=== PATIENT | female | born 1970 | race Caucasian/White ===

== ENCOUNTER 2017-06-14 12:53 | Emergency (ER) | payer OTHER ==
[2017-06-14 13:05] VITALS: O2SAT 98
[2017-06-14 13:50] LABS: RBC URINE 3 /hpf (0-3); URINE BILIRUBIN NEGATIVE (NEGATIVE); URINE COLOR Yellow (YELLOW); URINE GLUCOSE (UA) NORMAL (Normal); URINE KETONE NEGATIVE (NEGATIVE); URINE LEUKOCYTE ESTERASE NEG Leu/uL (Negative); URINE PROTEIN NEGATIVE (NEGATIVE); URINE UROBILINOGEN NORMAL mg/dL (0.2-1.0); WBC URINE 2 /hpf (0-5)
[2017-06-14 13:56] LABS: URINE BLOOD 1+ (NEGATIVE)
[2017-06-14 14:25] LABS: BASO # 0.1 K/uL (0.0-0.2); BASO % 0.7 % (0.0-2.0); EOS # 0.1 K/uL (0.0-0.7); EOS % 1.1 % (0.0-4.0); HEMATOCRIT 39.8 % (34.0-47.0); LYMPH % 26.3 % (20.0-40.0); MEAN CELL VOLUME 84.7 fL (81.0-99.0); MEAN CORPUSCULAR HEMOGLOBIN 27.7 pg (27.0-31.0); MEAN CORPUSCULAR HGB CONC 32.7 g/dL (33.0-37.0); MEAN PLATELET VOLUME 8.9 fL (7.2-11.7); MONO # 0.7 K/uL (0.0-0.8); MONO % 9.8 % (0.0-10.0); NRBC % 0.1 % (0.0-2.0); RED CELL DISTRIBUTION WIDTH 13.3 % (11.5-14.5); WHITE BLOOD COUNT 7.6 K/uL (4.8-10.8)
--- NOTE | 2017-06-14 15:15 | C.PDOC ---
History Of Present Illness 47 yo female come in for evaluation of lower abdominal cramping pain gradually developed for past few days. Pt sts, had spontaneous on 05/27/17 and since then has vaginal bleeding " but did not have stomach pain". Pt sts, at present time vaginal bleeding appears as spotting. Pt admits, was seen by DIRECTOR OF DEMENTIA OPERATIONS for follow up and scheduled for US. Pt reports, had transvaginal US CORRUGATOR " and was told go to ED for further evaluation". Otherwise, pt denies fever, chills, headache, dizziness, weakness, neck apin, CP, SOB, dyspnea, diaphoresis, V/D, back pain, UTI sx, hematuria. Ambulate to ED for evaluation, not in any apparent distress. Time Seen by Provider: 06/14/17 13:23 Chief Complaint (Nursing): Abdominal Pain History Per: Patient Past Medical History Reviewed: Historical Data, Nursing Documentation, Vital Signs Vital Signs: Last Vital Signs Temp 98.3 F 06/14/17 16:45 Pulse 75 06/14/17 16:45 Resp 20 06/14/17 16:45 BP 116/81 06/14/17 16:45 Pulse Ox 98 06/14/17 16:45 - Medical History PMH: No Chronic Diseases Surgical History: No Surg Hx Family History: States: No Known Family Hx - Social History Hx Alcohol Use: No Hx Substance Use: No Review Of Systems Except As Marked, All Systems Reviewed And Found Negative. Constitutional: Negative for: Fever, Chills Eyes: Negative for: Vision Change ENT: Negative for: Throat Pain, Throat Swelling Cardiovascular: Negative for: Chest Pain, Palpitations Respiratory: Negative for: Cough, Shortness of Breath Gastrointestinal: Positive for: Abdominal Pain. Negative for: Nausea, Vomiting , Diarrhea Genitourinary: Negative for: Hematuria, Vaginal Discharge, Vaginal Bleeding Musculoskeletal: Negative for: Neck Pain, Back Pain Skin: Negative for: Rash Neurological: Negative for: Altered Mental Status, Headache, Dizziness Physical Exam - Physical Exam Appears: Well, Non-toxic, No Acute Distress Skin: Normal Color, Warm, Dry, No Rash Head: Normacephalic Eye(s): bilateral: PERRL Nose: No Flaring, No Discharge Oral Mucosa: Moist, No Drooling Throat: No Erythema, No Exudate, No Drooling Neck: Supple Cardiovascular: Rhythm Regular Respiratory: No Decreased Breath Sounds, No Accessory Muscle Use, No Stridor, No Wheezing Gastrointestinal/Abdominal: Soft, Tenderness (mild suprapubic), No Distention, No Guarding Back: No CVA Tenderness Extremity: Normal ROM, No Pedal Edema, No Deformity Neurological/Psych: Oriented x3, Normal Speech, Normal Motor, Normal Sensation, Normal Reflexes ED Course And Treatment - Laboratory Results Result Diagrams: 06/14/17 14:20 Lab Interpretation: Normal Urine POC: Positive O2 Sat by Pulse Oximetry: 98 Pulse Ox Interpretation: Normal - CT Scan/US Preg 1st trimester US Other Rad Studies (CT/US): Read By Radiologist, Radiology Report Reviewed CT/US Interpretation: Accession No. : [id number]. Patient Name / ID : NESTOR GASTON / [id number]. Exam Date : 06/14/2017 15:12:01 ( Approved ). Study Comment : Sex / Age : F / 47Y. Creator : Darleen Torrez MD. Dictator : Darleen Torrez MD. 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 Approver2 : Report Date : 06/14/2017 16:11:54. My Comment : . Indication: Vaginal bleeding. Comparison: None available. Technique: Real- time transabdominal pelvic ultrasound was performed. In addition a transvaginal pelvic ultrasound was necessary to better depict pelvic anatomy. Findings: The uterus measures approximately 11.8 x 5.9 x 6.7 cm. Anteverted. At least 2 probable uterine fibroids measuring approximately 2 cm at the level of the fundus and 1.7 cm the level the mid uterus. Irregularly elongated intrauterine gestational sac measures approximately 3.0 cm compatible with gestational age 8 weeks 0 days. There is evidence of internal echoes within the gestational sac, possibly related to blood products. pole is not identified. Cervix length measures approximately 3.4 cm. Small subchorionic hemorrhage appears complex measuring approximately 3 x 1.4 x 3.9 cm. The right ovary is not visualized. The left ovary measures 2.7 x 1.7 x 3.1 cm. Blood flow is demonstrated to the left ovary. Impression: Irregular elongated intrauterine gestational sac consistent with gestational age calculation 8 weeks 0 days with evidence of internal echoes, possibly related to blood products. Small complex subchorionic hemorrhage measures approximately 3.9 cm in maximum dimension. Correlate clinically. At least 2 probable uterine fibroids as above. The right ovary is not visualized. Progress Note: On re-evaluation, pt is afebrile, hemodynamicaly stable. Non- toxic, tolerate Po well in ED. Abd: benign, (-) guarding, (-) rebound, (-) lcoalized tenderness. back: (-) CVA tenderness. Blood work and imaging review. Pt has clinical findings c/w incomplete . Case discussed with DIRECTOR OF DEMENTIA OPERATIONS on-call and discharge with outpt f/u recommend at this time to discuss surgical vs concervative tx for incomplete . results review and discussed with pt. Pt admits, has scheduled DIRECTOR OF DEMENTIA OPERATIONS appoitment on 06/18. Pt admits to F/u with DIRECTOR OF DEMENTIA OPERATIONS as soon as possible. return at any time if any worsening :fever, abd. pain, vomiting or any other changes. Pt udnerstand, agrees with dispo. Disposition Counseled Patient/Family Regarding: Studies Performed, Diagnosis, Need For Followup - Disposition Referrals: [facility] [Provider Group] [facility] [Provider Group] Disposition: HOME/ ROUTINE Disposition Time: 16:02 Condition: STABLE Additional Instructions: FOLLOW UP WITH DIRECTOR OF DEMENTIA OPERATIONS IN 1-2 DAYS FOR RE-EVALUATION. RETURN TO ED IF ANY FEVER, CHILLS, WORSENING OF ABDOMINAL PAIN OR ANY OTHER NEW CHANGES. Instructions: Abdominal Pain in (ED), Dilation and Curettage (GEN) Forms: [employer] (Surinamese) Print Language: EGYPTIAN - Clinical Impression Clinical Impression: Incomplete
--- NOTE | 2017-06-14 16:13 | US ---
Indication: Vaginal bleeding Comparison: None available Technique: Real-time transabdominal pelvic ultrasound was performed. In addition a transvaginal pelvic ultrasound was necessary to better depict pelvic anatomy. Findings: The uterus measures approximately 11.8 x 5.9 x 6.7 cm. Anteverted. At least 2 probable uterine fibroids measuring approximately 2 cm at the level of the fundus and 1.7 cm the level the mid uterus. Irregularly elongated intrauterine gestational sac measures approximately 3.0 cm compatible with gestational age 8 weeks 0 days. There is evidence of internal echoes within the gestational sac, possibly related to blood products. pole is not identified. Cervix length measures approximately 3.4 cm. Small subchorionic hemorrhage appears complex measuring approximately 3 x 1.4 x 3.9 cm. The right ovary is not visualized. The left ovary measures 2.7 x 1.7 x 3.1 cm. Blood flow is demonstrated to the left ovary. Impression: Irregular elongated intrauterine gestational sac consistent with gestational age calculation 8 weeks 0 days with evidence of internal echoes, possibly related to blood products. Small complex subchorionic hemorrhage measures approximately 3.9 cm in maximum dimension. Correlate clinically. At least 2 probable uterine fibroids as above. The right ovary is not visualized.
[2017-06-14 16:46] VITALS: BP 116/81; PULSE 75; RESP 20; TEMP 98.3
== END 2017-06-14 16:46 | disposition home or self-care (01) ==
LOC: C.ER 12:53
DX: O03.4 Incomplete spontaneous abortion without complication (principal)